=== PATIENT | female | born 1990 | race American Indian/Alaskan Native ===

== ENCOUNTER 2017-02-10 21:30 | Emergency (ER) | payer SELFPAY ==
[2017-02-10 22:50] LABS: Bilirubin,Urine NEG (Negative); Blood,Urine MOD (Negative); Ketones,Urine NEG (Negative); Leukocyte Esterase,Urine SM (Negative); Mucus,Urine FEW /HPF; Nitrite,Urine NEG (Negative); Protein,Urine <15 mg/dL mg/dL (Negative); RBC,Urine < 1.0 /HPF (0.0-6.0); Urobilinogen,Urine < 2.0 mg/dL (<2.0)
[2017-02-10 23:09] LABS: Basophils % (Auto) 0.6 % (0.0-1.8); Eosinophils % (Auto) 1.9 % (0.0-4.3); Hematocrit 37.6 % (30.3-42.9); Hemoglobin 12.2 gm/dl (10.1-14.3); Mean Corpuscular HGB Conc 32 % (30-34); Mean Corpuscular Hemoglobin 27 pg (28-32); Mean Corpuscular Volume 84 fl (79-97); Platelet Count 172 K/mm3 (140-440); Red Blood Count 4.49 M/mm3 (3.65-5.03); Red Cell Distribution Width 14.6 % (13.2-15.2); White Blood Count 8.5 K/mm3 (4.5-11.0)
[2017-02-10 23:19] LABS: Alanine Aminotransferase 7 units/L (7-56); Albumin 3.8 g/dL (3.9-5); Albumin/Globulin Ratio 1.3 %; Alkaline Phosphatase 63 units/L (35-129); Anion Gap 17 mmol/L; BUN/Creatinine Ratio 21.66; Blood Urea Nitrogen 13 mg/dL (7-17); Calcium 8.6 mg/dL (8.4-10.2); Carbon Dioxide 25 mmol/L (22-30); Chloride 101.4 mmol/L (98-107); Glucose 93 mg/dL (65-100); Lipase 26 units/L (13-60); Sodium 139 mmol/L (137-145); Total Protein 6.7 g/dL (6.3-8.2)
--- NOTE | 2017-02-11 00:54 | Ultrasound Report ---
FINAL REPORT EXAM: US OB \T\lt; = 14 WEEKS FETUS HISTORY: vaginal bleed, abd pn COMPARISON: None available. TECHNIQUE: Several real-time grayscale and color Doppler images were obtained. Transabdominal and transvaginal exam. FINDINGS: The uterus measures 7.9 x 4.1 x 4.7 centimeters. Endometrial stripe is 15 millimeters. This is upper limits of normal. No IUP or adnexal masses are demonstrated. The right ovary measures 2.7 x 2.0 x 2.2 centimeters. Left ovary measures 2.2 x 1.5 x 2.2 centimeters. Mildly complex cyst in the left ovary measuring 1.2 x 1.2 centimeters. This may reflect corpus luteum. Trace fluid in the pelvis. Gross vascular flow to the ovary. IMPRESSION: No IUP or adnexal masses are demonstrated. Correlation with serial beta HCGs and followup exam is suggested. Mildly complex left ovarian cyst measuring 1.2 centimeters. This may reflect corpus luteum.
--- NOTE | 2017-02-11 06:31 | Emergency Department Report ---
HPI - General Chief Complaint: Vaginal Bleeding Time Seen by Provider: 02/11/17 06:16 - HPI HPI: This is a 26-year-old -N[place]alese female presents to the emergency department with complaint of a one-day history of some mild vaginal bleeding and lower abdominal cramping while . The patient please she is about 6 weeks as her last menstrual cycle was the beginning of December. She had a positive home test and then another positive test at [facility] emergency department recently. She has not had any ultrasound or hormone levels checked. With this she is with 2 live children. She otherwise denies any past medical history. She does not have a primary care doctor or LOGISTICS ACCOUNT MANAGER. She is not taken anything for symptoms prior to presentation. No recent travel or sick contacts at home. She denies any dysuria, fever, nausea, vomiting. ED Past Medical Hx - Past Medical History Previous Medical History?: No - Surgical History Past Surgical History?: No - Social History Smoking Status: Never Smoker Substance Use Type: None - Medications Home Medications: Home Medications Medication Instructions Recorded Confirmed Last Taken Type Vit No.130/Iron/FA 1 each PO QDAY #30 tablet 02/11/17 Unknown Rx [ Tablet] ED Review of Systems ROS: Stated complaint: VAGINAL BLEEDING/6WKS Other details as noted in HPI Comment: All other systems reviewed and negative Constitutional: denies: chills, fever Eyes: denies: eye pain, eye discharge, vision change ENT: denies: ear pain, throat pain Respiratory: denies: cough, shortness of breath, wheezing Cardiovascular: denies: chest pain, palpitations Gastrointestinal: abdominal pain (cramping). denies: nausea Genitourinary: other (vaginal bleeding). denies: urgency, dysuria, discharge Musculoskeletal: denies: back pain, joint swelling, arthralgia Skin: denies: rash, lesions Neurological: denies: headache, weakness, paresthesias Physical Exam - Physical Exam Vital Signs: Vital Signs 02/10/17 02/11/17 21:45 04:10 Temperature 98.7 F 98.0 F Pulse Rate 74 60 Respiratory 18 18 Rate Blood Pressure 120/83 Blood Pressure 130/79 [Right] O2 Sat by Pulse 100 100 Oximetry Physical Exam: GENERAL: The patient is well-developed well-nourished. HEENT: Normocephalic. Atraumatic. Extraocular motions are intact. Patient has moist mucous membranes. Pupils equal reactive to light. NECK: Supple. Trachea is midline. CHEST/LUNGS: Clear to auscultation. There is no respiratory distress noted. HEART/CARDIOVASCULAR: Regular. There is no tachycardia. There is no gallop rub or murmur. ABDOMEN: Abdomen is soft, nontender. Patient has normal bowel sounds. There is no abdominal distention. SKIN: Skin is warm and dry. NEURO: The patient is awake, alert, and oriented. The patient is cooperative. The patient has no focal neurologic deficits. The patient has normal speech. MUSCULOSKELETAL: There is no tenderness or deformity. There is no limitation range of motion. There is no evidence of acute injury. ED Course Vital Signs 02/10/17 02/11/17 21:45 04:10 Temperature 98.7 F 98.0 F Pulse Rate 74 60 Respiratory 18 18 Rate Blood Pressure 120/83 Blood Pressure 130/79 [Right] O2 Sat by Pulse 100 100 Oximetry ED Medical Decision Making - Lab Data Result diagrams: 02/10/17 22:43 02/10/17 22:43 - Radiology Data Radiology results: report reviewed Transvaginal/OB ultrasound shows no intrauterine or adnexal masses. Mildly complex left ovarian cyst measuring 1.2 cm that may reflect corpus luteum. - Medical Decision Making 26-year-old female presents with a small amount of vaginal bleeding and lower abdominal cramping while . Patient's beta hCG is 43 which is not very good correlation for a viable . An ultrasound does not show any intrauterine or adnexal masses. There is a complex left ovarian cyst that may be the course luteum. Patient was examined and does not appear to be in any distress. Spoke with the patient in detail about the hormone level, ultrasound and that she is most likely having a miscarriage. The patient will be treated as a viable at this time but knows she needs to return to the emergency department or LOGISTICS ACCOUNT MANAGER office in a few days for a repeat hormone level. If the level is decreasing then this was in fact a miscarriage. If it is increasing then there is a small chance that this is a early viable intrauterine . She'll be started on vitamins and given OB/ COMPANY ACCOUNTANT referrals. She will return to the ER with any worsening of her symptoms or any acute distress. - Differential Diagnosis , spontaneous miscarriage, threatened miscarriage, fibroids Critical Care Time: No Critical care attestation.: If time is entered above; I have spent that time in minutes in the direct care of this critically ill patient, excluding procedure time. ED Disposition Clinical Impression: Threatened miscarriage Disposition: DISCHARGED TO HOME OR SELFCARE Is pt being admited?: No Condition: Stable Instructions: Threatened Miscarriage (ED) Additional Instructions: Please follow-up with an LOGISTICS ACCOUNT MANAGER or return to the emergency department and 2-3 days for a repeat beta hCG/ hormone level. If the hormone level is decreasing, then you are most likely having a miscarriage. If the hormone level is rising, there is still a chance that this is a viable . You have been started on vitamins. You can take Tylenol every 4 hours, using weight-based dosing, as needed for discomfort. Otherwise do not take any medications that are not prescribed by a physician. Prescriptions: Vit No.130/Iron/FA [ Tablet] 1 each PO QDAY #30 tablet Referrals: PRIMARY CARE [Primary Care Provider] - 3-5 Days [facility] [Provider Group] - 3-5 Days [facility] [Provider Group] - 3-5 Days [facility] [Provider Group] - 3-5 Days Time of Disposition: 06:33
[2017-02-11 06:45] VITALS: BP 110/70
== END 2017-02-11 07:38 | disposition home or self-care (01) ==
LOC: ED 21:30
DX: O20.0 Threatened abortion (principal); Z3A.01 Less than 8 weeks gestation of pregnancy
CPT/HCPCS: 36415; 76801; 76817; 80053; 81001; 83690; 84702; 85025; 86850; 86900; 86901; 99284

== ENCOUNTER 2017-10-06 16:10 | Emergency (ER) | payer MEDICAID, OTHER ==
[2017-10-06] MEDS ORDERED: TYLENOL PO ONE (16:29)
[2017-10-06] MEDS ORDERED: TYLENOL ONE (16:32)
--- NOTE | 2017-10-06 18:39 | XRay Report ---
FINAL REPORT EXAM: XR CHEST ROUTINE 2V HISTORY: hx of flu. Fever. Cough worsening with flu TECHNIQUE: Frontal and lateral chest radiographs. PRIORS: None. FINDINGS: The cardiomediastinal silhouette is normal. No focal consolidation. No pleural effusion. No pneumothorax. No acute osseous abnormality. IMPRESSION: No acute cardiopulmonary process.
--- NOTE | 2017-10-06 19:47 | Emergency Department Report ---
Minor Respiratory - HPI Chief Complaint: Upper Respiratory Infection Stated Complaint: FLU LIKE SYMPTOMS Time Seen by Provider: 10/06/17 19:43 Duration: 3 Days Severity: moderate Minor Respiratory: Yes Cough, Yes Fever, No Rhinorrhea, No Sore Throat, No Able to Tolerate Fluids, No Ear Pain, No Sick Contacts, No Hemoptysis, No Chest Pain , No Shortness of Breath Other History: Patient is a 27-year-old female who presents to ED she is to have a flulike symptoms and body aches for the past 3 days. Patient states she went to the medical 2 days ago and was still she had the flu and was given Tamiflu and ibuprofen patient states she has not taken her medication symptoms have been worse and not resolving. Patient admitted intermittent cough, congestion, body aches. She denies dysuria, frequency, vaginal bleeding, chest pain, shortness of breath, ED Review of Systems ROS: Stated complaint: FLU LIKE SYMPTOMS Other details as noted in HPI Constitutional: denies: chills, fever Eyes: denies: eye pain, eye discharge, vision change ENT: denies: ear pain, throat pain Respiratory: denies: cough, shortness of breath, wheezing Cardiovascular: denies: chest pain, palpitations Endocrine: no symptoms reported Gastrointestinal: denies: abdominal pain, nausea, diarrhea Genitourinary: denies: urgency, dysuria, discharge Musculoskeletal: denies: back pain, joint swelling, arthralgia Skin: denies: rash, lesions Neurological: denies: headache, weakness, paresthesias Psychiatric: denies: anxiety, depression Hematological/Lymphatic: denies: easy bleeding, easy bruising ED Past Medical Hx - Past Medical History Previous Medical History?: Yes Additional medical history: Flu, Hepatitis B - Surgical History Past Surgical History?: No - Social History Smoking Status: Never Smoker Substance Use Type: Prescribed - Medications Home Medications: Home Medications Medication Instructions Recorded Confirmed Last Taken Type Vit No.130/Iron/Folic 1 each PO QDAY #30 tablet 02/11/17 Unknown Rx [ Tablet] Ciprofloxacin HCl [Ciprofloxacin 500 mg PO Q12HR #14 tab 10/06/17 Unknown Rx TAB] Minor Respiratory Exam - Exam General: Vital signs noted. No distress. Alert and acting appropriately. HEENT: Yes Moist Mucous Membranes, No Pharyngeal Erythema, No Pharyngeal Exudates, No Rhinorrhea, No Conjuctival Injection, No Frontal Tenderness, No Maxillary Tenderness Ear: Neither TM Bulge, Neither TM Erythema, Neither EAC Pain, Neither EAC Discharge Neck: Yes Supple, No Adenopathy Lungs: Yes Good Air Exchange, No Wheezes, No Ronchi, No Stridor, No Cough, No Labored Respirations, No Retractions, No Use of Accessory Muscles, No Other Abnormal Lung Sounds Heart: Yes Regular, No Murmur Abdomen: Yes Normal Bowel Sounds, No Tenderness, No Peritoneal Signs Skin: No Rash, No Edema Neurologic: Alert and oriented, no deficits. Musculoskeletal: Unremarkable. ED Course Vital Signs 10/06/17 10/06/17 16:21 16:35 Temperature 103 F H Pulse Rate 124 H Respiratory 20 18 Rate Blood Pressure 128/80 O2 Sat by Pulse 98 Oximetry ED Medical Decision Making - Lab Data Result diagrams: 10/06/17 19:50 - Radiology Data Radiology results: report reviewed, image reviewed FINAL REPORT EXAM: XR CHEST ROUTINE 2V HISTORY: hx of flu. Fever. Cough worsening with flu TECHNIQUE: Frontal and lateral chest radiographs. PRIORS: None. FINDINGS: The cardiomediastinal silhouette is normal. No focal consolidation. No pleural effusion. No pneumothorax. No acute osseous abnormality. IMPRESSION: No acute cardiopulmonary process. Transcribed By: MG Dictated By: RAAD MARTINEZ MD Electronically Authenticated By: RAAD MARTINEZ MD Signed Date/Time: 10/06/17 0338 - Medical Decision Making 27-year-old female presents with flulike symptoms. Fever resolved during the ED stay. Influenza A and B test negative, chest x-ray no acute findings, urinalysis pos bacteria urine test negative. She received 1 L of fluids. I discussed all this findings with the patient. Discussed with mother symptomatic relief with [id number] medications. Discussed continue Tylenol and Motrin as needed for fever and pain. Discussed increase fluids and diet intake. Discussed rest much needed. Discussed daily vitamin C for immune booster. Discussed follow-up with primary care physician in 3-5 days. Patient's verbally states she understands and will comply the following instructions and follow-up Vital signs normalized, fever reduced, pulse rate within normal limits. Patient is in no acute distress Critical care attestation.: If time is entered above; I have spent that time in minutes in the direct care of this critically ill patient, excluding procedure time. ED Disposition Clinical Impression: Viral syndrome UTI (urinary tract infection) Qualifiers: Urinary tract infection type: acute cystitis Hematuria presence: without hematuria Qualified Code(s): N30.00 - Acute cystitis without hematuria Disposition: TO HOME OR SELFCARE Is pt being admited?: No Does the pt Need Aspirin: No Condition: Stable Instructions: Upper Respiratory Infection (ED), Viral Syndrome (ED), Urinary Tract Infection in Women (ED) Additional Instructions: Make sure to follow up with the primary care physician as discussed. Take all your medications as you've been prescribed. If you have any worsening symptoms or develop new symptoms please return to ED immediately. Prescriptions: Ciprofloxacin HCl [Ciprofloxacin TAB] 500 mg PO Q12HR #14 tab Referrals: LAURY WRIGHT MD [Primary Care Provider] - 3-5 Days [facility] [Outside] - 3-5 Days [facility] [Outside] - 3-5 Days [facility] [Outside] - 3-5 Days Forms: Work/School Release Form(ED) Time of Disposition: 22:15
[2017-10-06 20:03] LABS: Basophils % (Auto) 0.3 % (0.0-1.8); Hematocrit 42.4 % (30.3-42.9); Hemoglobin 13.6 gm/dl (10.1-14.3); Lymphocytes # (Auto) 1.1 K/mm3 (1.2-5.4); Lymphocytes % (Auto) 18.2 % (13.4-35.0); Mean Corpuscular HGB Conc 32 % (30-34); Mean Corpuscular Hemoglobin 28 pg (28-32); Mean Corpuscular Volume 86 fl (79-97); Monocytes # (Auto) 0.6 K/mm3 (0.0-0.8); Monocytes % (Auto) 10.3 % (0.0-7.3); Platelet Count 148 K/mm3 (140-440); Red Blood Count 4.95 M/mm3 (3.65-5.03)
[2017-10-06] MEDS ORDERED: NACL 0.9% 1000 ML 1,000 ML IV ONE (20:06)
[2017-10-06 22:00] LABS: Bacteria,Urine 1+ /HPF (Negative); Bilirubin,Urine NEG (Negative); Blood,Urine NEG (Negative); Color,Urine Yellow (Yellow); Mucus,Urine 3+ /HPF; Nitrite,Urine NEG (Negative); Urobilinogen,Urine < 2.0 mg/dL (<2.0)
[2017-10-06 22:01] LABS: HCG Qualitative,Urine Negative (Negative)
[2017-10-06 22:49] VITALS: BP 112/75
== END 2017-10-06 22:46 | disposition home or self-care (01) ==
LOC: ED 16:10
DX: B34.9 Viral infection, unspecified (principal); N30.00 Acute cystitis without hematuria; Z86.19 Personal history of other infectious and parasitic diseases
CPT/HCPCS: 36415; 71046; 81001; 81025; 85025; 87400; 96360; 99284; J7030

== ENCOUNTER 2018-05-14 09:34 | Emergency (ER) | payer MEDICAID ==
[2018-05-14 10:37] VITALS: BP 109/62
[2018-05-14 11:29] LABS: Bilirubin,Urine NEG (Negative); Blood,Urine NEG (Negative); Color,Urine Yellow (Yellow); Mucus,Urine FEW /HPF; Protein,Urine <15 mg/dL mg/dL (Negative); Urobilinogen,Urine < 2.0 mg/dL (<2.0)
[2018-05-14 11:46] LABS: HCG Qualitative,Urine Negative (Negative)
[2018-05-14] MEDS ORDERED: MORPHINE IV ONE (12:17)
--- NOTE | 2018-05-14 12:18 | Emergency Department Report ---
ED Abdominal Pain HPI - General Chief Complaint: Abdominal Pain Stated Complaint: SHARP PAIN STOMACH Time Seen by Provider: 05/14/18 12:04 Source: patient Mode of arrival: Ambulatory Limitations: No Limitations - History of Present Illness Initial Comments: Says was 28-year-old -English female who presents with right-sided abdominal pain for 3 days. Patient states she is also having some dysuria, frequency, and urgency with symptoms. She reports pain is 10 out of 10 on right upper side radiating to right lower side of abdomen. Patient states pain is worse after eating and is sharp intermittent pain. Pain last for 20-45 minutes. She is currently taking advil with no improvement of symptoms. Patient LMP 04/15/2018, A1. Patient denies nausea, vomiting, diarrhea, back pain, chest pain, fever, and change in bowel pattern. MD Complaint: abdominal pain Onset/Timin -: days(s) Location: RLQ Radiation: none Migration to: no migration Severity: severe Severity scale (0 -10): 10 Quality: aching, sharp Consistency: constant Improves With: nothing Worsens With: eating Associated Symptoms: denies other symptoms - Related Data LMP Date: 04/15/18 Previous Rx's Medication Instructions Recorded Last Taken Type Vit No.130/Iron/Folic 1 each PO QDAY #30 tablet 02/11/17 Unknown Rx [ Tablet] Ciprofloxacin HCl [Ciprofloxacin 500 mg PO Q12HR #14 tab 10/06/17 Unknown Rx TAB] Ibuprofen [Motrin 800 MG tab] 800 mg PO Q8HR PRN #15 tablet 05/14/18 Unknown Rx traMADol [Ultram 50 MG tab] 50 mg PO Q6HR PRN #12 tablet 05/14/18 Unknown Rx Allergies Allergy/AdvReac Type Severity Reaction Status Date / Time No Known Allergies Allergy Unverified 11/23/13 10:34 ED Review of Systems ROS: Stated complaint: SHARP PAIN STOMACH Other details as noted in HPI Constitutional: denies: chills, fever Respiratory: denies: cough, shortness of breath, wheezing Gastrointestinal: abdominal pain (right sided abdominal pain). denies: nausea, vomiting, diarrhea Genitourinary: denies: urgency, dysuria, frequency, discharge Musculoskeletal: denies: back pain, joint swelling, arthralgia Neurological: denies: headache, weakness, paresthesias Psychiatric: denies: anxiety, depression ED Past Medical Hx - Past Medical History Previous Medical History?: Yes Additional medical history: Hepatitis B - Surgical History Past Surgical History?: No - Social History Smoking Status: Never Smoker Substance Use Type: None - Medications Home Medications: Home Medications Medication Instructions Recorded Confirmed Last Taken Type Vit No.130/Iron/Folic 1 each PO QDAY #30 tablet 02/11/17 Unknown Rx [ Tablet] Ciprofloxacin HCl [Ciprofloxacin 500 mg PO Q12HR #14 tab 10/06/17 Unknown Rx TAB] Ibuprofen [Motrin 800 MG tab] 800 mg PO Q8HR PRN #15 tablet 05/14/18 Unknown Rx traMADol [Ultram 50 MG tab] 50 mg PO Q6HR PRN #12 tablet 05/14/18 Unknown Rx ED Physical Exam - General Limitations: No Limitations General appearance: alert, in no apparent distress - Respiratory Respiratory exam: Present: normal lung sounds bilaterally. Absent: respiratory distress - Cardiovascular Cardiovascular Exam: Present: regular rate, normal rhythm. Absent: systolic murmur, diastolic murmur, rubs, gallop - GI/Abdominal GI/Abdominal exam: Present: soft, tenderness (LLQ tenderness), normal bowel sounds. Absent: organomegaly, mass - Back Exam Back exam: Present: normal inspection. Absent: CVA tenderness (R), CVA tenderness (L) - Neurological Exam Neurological exam: Present: alert, oriented X3, normal gait - Psychiatric Psychiatric exam: Present: normal affect, normal mood - Skin Skin exam: Present: warm, dry, intact, normal color. Absent: rash ED Course Vital Signs 05/14/18 05/14/18 10:34 16:30 Temperature 98.1 F Pulse Rate 68 Respiratory 18 18 Rate Blood Pressure 109/62 O2 Sat by Pulse 98 Oximetry ED Medical Decision Making - Lab Data Result diagrams: 05/14/18 12:49 05/14/18 12:47 - Radiology Data Radiology results: report reviewed, image reviewed FINAL REPORT EXAM: CT ABDOMEN PELVIS W CON HISTORY: LLQ tendern TECHNIQUE: Axial images were performed from the lung bases to the pubic symphysis. Multiplanar reformats are performed on the acquisition scanner. Total exam DLP 710.37 mGy-cm Comparison: None FINDINGS: Clear lung bases. Normal enhancement and appearance of the liver, spleen, pancreas, gallbladder, bilateral adrenal glands and bilateral kidneys. Aorta and mesenteric vessels have normal enhancement. There is ill-defined low-density around the fissure for the ligamentum teres measuring approximately 2.6 x 1.5 centimeters most compatible with fatty infiltration. Stomach is decompressed. Uterus is normally anteverted. There is a well-circumscribed somewhat loculated crenated appearing peripherally enhancing right adnexal 4.0 x 3.4 x 3.6 centimeter lesion. There is free pelvic fluid in the cul-de-sac with non simple Hounsfield units. The cervix is prominent. A 2nd low-density focus is present along the inferior aspect the right adnexa adjacent to the cervix, poorly delineated measuring approximately 1.5 centimeters, better delineated on the sagittal images. There is free fluid in the left adnexa. There is an ovoid soft tissue density in the left adnexa measuring 2.7 x 1.7 centimeters likely left ovary. The uterus has a slightly boggy appearance. No free air or free fluid. Mild 8 rectal stool. Nonobstructive bowel pattern. The appendix is normal in the right lower quadrant. Delayed phase images demonstrate normal excretion of contrast from the kidneys. Very prominent cervix on the delayed phase images. Imaged axial skeleton is unremarkable. Minimal scoliosis. IMPRESSION: 4.0 x 3.4 x 3.6 centimeter peripherally enhancing crenated appearing right adnexal cystic lesion with 2nd ill-defined 1.5 centimeter intermediate signal intensity lesion caudally adjacent to the right cervix. Very boggy appearing cervix. Intermediate density free cul-de-sac fluid. No discrete left adnexal abnormality. Ovoid density in the left adnexa presumably representing the ovary. Differential diagnosis for the findings includes hemorrhagic functional cyst with free blood, tubo-ovarian abscess/PID with cervicitis. Normal appendix. Recommend transvesical and endovaginal pelvic ultrasound with correlation of labs and physical exam for further characterization of the findings. No bowel abnormality identified to explain as an etiology. Findings are therefore suspected to be HUMAN RESOURCES TRAINER origin. FINAL REPORT EXAM: US PELVIC COMPLETE HISTORY: r/o cystic abscess per radiologist TECHNIQUE: Transvesical and endovaginal pelvic sonographic imaging was performed Comparison: CT earlier same day demonstrating hemorrhagic cyst versus pelvic abscess and intermediate density free cul-de-sac fluid. FINDINGS: Images demonstrate normally anteverted uterus to measure 8.1 x 3.4 x 4.4 centimeters. Uterine myometrial echotexture is homogeneous. Endometrial stripe measures 12.8 millimeters. Right ovary measures 4.6 x 4.0 x 4.2 centimeters. The right ovary has a complex appearance with multiple septations and cystic spaces. There is a complex 4.2 centimeter mass and 2 discrete cystic spaces measuring 1.6 and 1.5 centimeters. Normal peripheral color flow. There are low level echoes within the complex portion of the lesion. There are no echogenic focal areas except for mild mural nodularity of 1 of the areas of cystic change. Left ovary measures 2.9 x 2.5 x 1.7 centimeters. Normal small peripheral follicles and normal color flow. Moderate free pelvic fluid appears simple. IMPRESSION: Complex right adnexal structure with cystic components and normal peripheral color flow is most suggestive of a hemorrhagic physiologic cyst with free cul-de-sac blood products. Less likely tubo-ovarian abscess. Correlate with labs. If diagnosis of hemorrhagic complex cyst is made, recommend follow-up off cycle imaging 10 weeks if the patient remains symptomatic. Normal appearance of the left ovary. Normal appearance of the uterus with secretory phase appearance of the endometrial stripe. - Medical Decision Making This is a 28 y.o. female presents with lower abdominal pain for 3 days. Patient was examined by me. Vitals are normal and patient is in no acute distress. Patient given morphine 2 mg IV once while in ER. Obtained labs and CT of abdomen and pelvis. All labs are unremarkable. Radiograph dictated by radiologist and reports reviewed by myself. CT findings of 4.0 x 3.4 x 3.6 centimeter peripherally enhancing crenated appearing right adnexal cystic lesion with 2nd ill-defined 1.5 centimeter intermediate signal intensity lesion caudally adjacent to the right cervix. Very boggy appearing cervix. Intermediate density free cul-de-sac fluid. No discrete left adnexal abnormality. Ovoid density in the left adnexa presumably representing the ovary. Differential diagnosis for the findings includes hemorrhagic functional cyst with free blood, tubo-ovarian abscess/PID with cervicitis. Normal appendix. Recommend transvesical and endovaginal pelvic ultrasound with correlation of labs and physical exam for further characterization of the findings. US of abdomen and pelvis obtained and Complex right adnexal structure with cystic components and normal peripheral color flow is most suggestive of a hemorrhagic physiologic cyst with free cul-de-sac blood products. Less likely tubo-ovarian abscess. Correlate with labs. If diagnosis of hemorrhagic complex cyst is made, recommend follow-up off cycle imaging 10 weeks if the patient remains symptomatic. Normal appearance of the left ovary. Normal appearance of the uterus with secretory phase appearance of the endometrial stripe. Patient informed of results. Start ibuprofen and tramadol for pain. Patient will follow up with primary care and HOSPITAL STAFF PHARMACIST. Patient instructed to have them repeat ultrasound in 9-10 weeks. Patient discharged home in stable condition. Follow up with PCP in 2-3 days. Critical care attestation.: If time is entered above; I have spent that time in minutes in the direct care of this critically ill patient, excluding procedure time. ED Disposition Clinical Impression: Cyst of right ovary, Hemorrhagic cyst of right ovary Abdominal pain Qualifiers: Abdominal location: lower abdomen, unspecified Qualified Code(s): R10.30 - Lower abdominal pain, unspecified Disposition: TO HOME OR SELFCARE Is pt being admited?: No Does the pt Need Aspirin: No Condition: Stable Instructions: Ovarian Cyst (ED), Abdominal Pain (ED) Additional Instructions: Follow-up with HOSPITAL STAFF PHARMACIST to have repeat ultrasounds 9 to 10 weeks. Take ibuprofen or tramadol every 6 hours if needed for pain. Prescriptions: Ibuprofen [Motrin 800 MG tab] 800 mg PO Q8HR PRN #15 tablet PRN Reason: Pain, Moderate (4-6) traMADol [Ultram 50 MG tab] 50 mg PO Q6HR PRN #12 tablet PRN Reason: Pain Referrals: SHAHIDA LAU MD [Primary Care Provider] - 3-5 Days [facility] [Provider Group] - 3-5 Days Time of Disposition: 18:16 Print Language: MONGOLIAN
[2018-05-14 13:03] LABS: Basophils # (Auto) 0.1 K/mm3 (0.0-0.1); Basophils % (Auto) 0.6 % (0.0-1.8); Eosinophils # (Auto) 0.1 K/mm3 (0.0-0.4); Eosinophils % (Auto) 1.1 % (0.0-4.3); Hematocrit 41.2 % (30.3-42.9); Hemoglobin 13.7 gm/dl (10.1-14.3); Lymphocytes # (Auto) 1.9 K/mm3 (1.2-5.4); Lymphocytes % (Auto) 23.9 % (13.4-35.0); Mean Corpuscular HGB Conc 33 % (30-34); Mean Corpuscular Hemoglobin 28 pg (28-32); Mean Corpuscular Volume 85 fl (79-97); Monocytes # (Auto) 0.6 K/mm3 (0.0-0.8); Monocytes % (Auto) 7.5 % (0.0-7.3); Platelet Count 175 K/mm3 (140-440); Red Blood Count 4.85 M/mm3 (3.65-5.03); Red Cell Distribution Width 14.1 % (13.2-15.2)
[2018-05-14 13:23] LABS: Alanine Aminotransferase 10 units/L (7-56); Albumin 4.3 g/dL (3.9-5); BUN/Creatinine Ratio 32; Blood Urea Nitrogen 16 mg/dL (7-17); Hemolysis Index 12; Lipase 22 units/L (13-60)
--- NOTE | 2018-05-14 15:46 | Cat Scan Report ---
FINAL REPORT EXAM: CT ABDOMEN PELVIS W CON HISTORY: LLQ tendern TECHNIQUE: Axial images were performed from the lung bases to the pubic symphysis. Multiplanar reformats are performed on the acquisition scanner. Total exam DLP 710.37 mGy-cm Comparison: None FINDINGS: Clear lung bases. Normal enhancement and appearance of the liver, spleen, pancreas, gallbladder, bilateral adrenal glands and bilateral kidneys. Aorta and mesenteric vessels have normal enhancement. There is ill-defined low-density around the fissure for the ligamentum teres measuring approximately 2.6 x 1.5 centimeters most compatible with fatty infiltration. Stomach is decompressed. Uterus is normally anteverted. There is a well-circumscribed somewhat loculated crenated appearing peripherally enhancing right adnexal 4.0 x 3.4 x 3.6 centimeter lesion. There is free pelvic fluid in the cul-de-sac with non simple Hounsfield units. The cervix is prominent. A 2nd low-density focus is present along the inferior aspect the right adnexa adjacent to the cervix, poorly delineated measuring approximately 1.5 centimeters, better delineated on the sagittal images. There is free fluid in the left adnexa. There is an ovoid soft tissue density in the left adnexa measuring 2.7 x 1.7 centimeters likely left ovary. The uterus has a slightly boggy appearance. No free air or free fluid. Mild 8 rectal stool. Nonobstructive bowel pattern. The appendix is normal in the right lower quadrant. Delayed phase images demonstrate normal excretion of contrast from the kidneys. Very prominent cervix on the delayed phase images. Imaged axial skeleton is unremarkable. Minimal scoliosis. IMPRESSION: 4.0 x 3.4 x 3.6 centimeter peripherally enhancing crenated appearing right adnexal cystic lesion with 2nd ill-defined 1.5 centimeter intermediate signal intensity lesion caudally adjacent to the right cervix. Very boggy appearing cervix. Intermediate density free cul-de-sac fluid. No discrete left adnexal abnormality. Ovoid density in the left adnexa presumably representing the ovary. Differential diagnosis for the findings includes hemorrhagic functional cyst with free blood, tubo-ovarian abscess/PID with cervicitis. Normal appendix. Recommend transvesical and endovaginal pelvic ultrasound with correlation of labs and physical exam for further characterization of the findings. No bowel abnormality identified to explain as an etiology. Findings are therefore suspected to be [employer] origin.
[2018-05-14] MEDS ORDERED: MORPHINE ONE (16:26)
--- NOTE | 2018-05-14 17:56 | Ultrasound Report ---
FINAL REPORT EXAM: US PELVIC COMPLETE HISTORY: r/o cystic abscess per radiologist TECHNIQUE: Transvesical and endovaginal pelvic sonographic imaging was performed Comparison: CT earlier same day demonstrating hemorrhagic cyst versus pelvic abscess and intermediate density free cul-de-sac fluid. FINDINGS: Images demonstrate normally anteverted uterus to measure 8.1 x 3.4 x 4.4 centimeters. Uterine myometrial echotexture is homogeneous. Endometrial stripe measures 12.8 millimeters. Right ovary measures 4.6 x 4.0 x 4.2 centimeters. The right ovary has a complex appearance with multiple septations and cystic spaces. There is a complex 4.2 centimeter mass and 2 discrete cystic spaces measuring 1.6 and 1.5 centimeters. Normal peripheral color flow. There are low level echoes within the complex portion of the lesion. There are no echogenic focal areas except for mild mural nodularity of 1 of the areas of cystic change. Left ovary measures 2.9 x 2.5 x 1.7 centimeters. Normal small peripheral follicles and normal color flow. Moderate free pelvic fluid appears simple. IMPRESSION: Complex right adnexal structure with cystic components and normal peripheral color flow is most suggestive of a hemorrhagic physiologic cyst with free cul-de-sac blood products. Less likely tubo-ovarian abscess. Correlate with labs. If diagnosis of hemorrhagic complex cyst is made, recommend follow-up off cycle imaging 10 weeks if the patient remains symptomatic. Normal appearance of the left ovary. Normal appearance of the uterus with secretory phase appearance of the endometrial stripe.
--- NOTE | 2018-05-14 17:57 | Ultrasound Report ---
FINAL REPORT EXAM: US TRANSVAGINAL HISTORY: r/o cystic abscess per radiologist TECHNIQUE: Transvesical and endovaginal pelvic sonographic imaging Comparison: CT earlier same day FINDINGS: Images demonstrate normally anteverted uterus to measure 8.1 x 3.4 x 4.4 centimeters. Uterine myometrial echotexture is homogeneous. Endometrial stripe measures 12.8 millimeters. Right ovary measures 4.6 x 4.0 x 4.2 centimeters. The right ovary has a complex appearance with multiple septations and cystic spaces. There is a complex 4.2 centimeter mass and 2 discrete cystic spaces measuring 1.6 and 1.5 centimeters. Normal peripheral color flow. There are low level echoes within the complex portion of the lesion. There are no echogenic focal areas except for mild mural nodularity of 1 of the areas of cystic change. Left ovary measures 2.9 x 2.5 x 1.7 centimeters. Normal small peripheral follicles and normal color flow. Moderate free pelvic fluid appears simple. IMPRESSION: Complex right adnexal structure with cystic components and normal peripheral color flow is most suggestive of a hemorrhagic physiologic cyst with free cul-de-sac blood products. Less likely tubo-ovarian abscess. Correlate with labs. If diagnosis of hemorrhagic complex cyst is made, recommend follow-up off cycle imaging 10 weeks if the patient remains symptomatic. Normal appearance of the left ovary. Normal appearance of the uterus with secretory phase appearance of the endometrial stripe.
== END 2018-05-14 18:40 | disposition home or self-care (01) ==
LOC: ED 09:34
DX: N83.291 Other ovarian cyst, right side (principal); Z86.19 Personal history of other infectious and parasitic diseases
CPT/HCPCS: 36415; 74177; 76830; 76856; 80053; 81001; 81025; 83690; 85025; 96374; 99284; J2270; Q9967